=== PATIENT | female | born 1995 | race Caucasian/White ===

== ENCOUNTER 2017-09-13 20:25 | Emergency (ER) | END 2017-09-13 23:50 | disposition home or self-care (01) ==

== ENCOUNTER 2018-01-04 23:05 | Emergency (ER) | END 2018-01-05 07:15 | disposition home or self-care (01) ==

== ENCOUNTER 2018-09-23 01:46 | Emergency (ER) | payer MEDICAID, OTHER ==
[~2018-09-23] VITALS: Ht 162.6 cm; Wt 77.0 kg
[~2018-09-23 01:46] MED LIST: ACET500C5 PO; CIPR500T4 PO; HYDR-4011 PO; IBUP-1542 PO; NAPR-985 PO; [UNRECOGNIZED DRUG - CODE]
[2018-09-23 02:01] VITALS: Ht 162.6 cm; Wt 77.0 kg
--- NOTE | 2018-09-23 03:28 | ERD ---
ER Documentation Chief Complaint Chief Complaint R flank pain today w/ frequency/urgency/dysuria. no n/v/d HPI 23-year-old female complaining of dysuria times 1 day. Patient states that she initially thought her symptoms are due to yeast infection. She took fluconazole, as well as use antifungal cream. However, throughout the day her symptoms has seem to be worsening. She complaining of urinary frequency, urgency, and small amounts. He also developed a right flank pain. Denies fever or chills. Denies nausea, vomiting, or diarrhea. ROS All systems reviewed and are negative except as per history of present illness. Medications Home Meds Active Scripts Nitrofurantoin Monohyd Macrocr* (Macrobid*) 100 Mg Capsr, 100 MG PO BID for 7 Days, CAP Prov:SIMON DWYER [employer]ILLANCE [employer]ITOR 09/23/18 Acetaminophen* (Tylophen*) 500 Mg Capsule, 1 CAP PO Q6H PRN for PAIN AND OR ELEVATED TEMP, #20 CAP Prov:BRETT BRO-C 01/05/18 Ibuprofen* (Motrin*) 600 Mg Tab, 600 MG PO Q6, #30 TAB Prov:BRETT BRO-C 01/05/18 Ciprofloxacin Hcl* (Ciprofloxacin Hcl*) 500 Mg Tablet, 500 MG PO BID for 7 Days, TAB Prov:BRETT BRO-C 01/05/18 Hydrocodone/Acetaminophen ([place] 5-325 Tablet) 1 Each Tablet, 1 EACH PO Q4, #7 TAB Prov:FRIEDA,VIRGILIO 09/13/17 Naproxen* (Naprosyn*) 500 Mg Tablet, 500 MG PO BID for 10 Days, #20 TAB Prov:FRIEDA,VIRGILIO 09/13/17 Reported Medications Diphenhydramine Hcl (Benadrilina) 25 Mg Capsule 03/22/11 Allergies Allergies: Coded Allergies: No Known Drug Allergies (Verified Allergy, Mild, 01/05/18) PMhx/Soc History of Surgery: No Anesthesia Reaction: No Hx Neurological Disorder: No Hx Respiratory Disorders: No Hx Cardiac Disorders: No Hx Psychiatric Problems: No Hx Miscellaneous Medical Probl: No Hx Alcohol Use: Yes Hx Substance Use: No Hx Tobacco Use: No Physical Exam Vitals Vital Signs Date Temp Pulse Resp B/P (MAP) Pulse Ox O2 O2 Flow FiO2 Time Delivery Rate 09/23/18 97.3 99 16 136/84 99 02:01 (101) Physical Exam General: Well-developed, well-nourished, conscious and coherent, in no distress Skin: Warm and dry without rash, good texture and turgor Head: Normocephalic without evidence of trauma Chest: Normal AP diameter. Good expansion without retractions. Nontender. Lungs are clear to auscultate bilaterally with good tidal volume Heart: Regular rate and rhythm. No murmur, rub, or gallops heard Abdomen: Soft and nontender without masses, guarding, or rebound. Bowel sounds are active. No hepatosplenomegaly Back: Without spinal tenderness. Mild right CVA tenderness Extremities: Full range of motion. Good strength bilaterally. No erythema, ecchymosis, or edema. Peripheral pulses are intact. Sensation intact Neuro: Alert and oriented 4, GCS 15. Results 24 hrs Laboratory Tests Test 09/23/18 03:30 09/23/18 03:31 Bedside Urine pH (LAB) 7.0 Bedside Urine Protein (LAB) 2+ Bedside Urine Glucose (UA) Negative Bedside Urine Ketones (LAB) Negative Bedside Urine Blood 2+ Bedside Urine Nitrite (LAB) Negative Bedside Urine Leukocyte Esterase (L 3+ POC Beta HCG, Qualitative NEGATIVE Procedures/MDM Well-appearing 23-year-old female presents the ED with dysuria times 1 day. UA showed 3+ leukocyte, 2+ blood, negative nitrite. These are consistent with urinary tract infection. Although people does have a mild right CVA tenderness, she is afebrile, I doubt pyelonephritis. I doubt sepsis. Patient appears well, stable for discharge and outpatient management. Medical decision making shared with patient and family. Education provided to patient and family. Patient and family expressed understanding of the plan. Medications on discharge: Macrobid. Follow-up: Primary care provider in 2-3 days or return to ED if worse. Disclaimer: Inadvertent spelling and grammatical errors are likely due to EHR/dictation software use and do not reflect on the overall quality of patient care. Also, please note that the electronic time recorded on this note does not necessarily reflect the actual time of the patient encounter. Departure Diagnosis: Primary Impression: Dysuria Condition: Stable SIMON DWYER NP Sep 23, 2018 03:28
[2018-09-23] MEDS ORDERED: NITR-58 PO (03:41)
[2018-09-23 04:07] VITALS: BP 123/74; PULSE 78; RESP 15
== END 2018-09-23 04:07 | disposition home or self-care (01) ==
LOC: FTE 01:46
DX: R30.0 Dysuria (principal); R40.2412 Glasgow coma scale score 13-15, at arrival to emergency department
CPT/HCPCS: 81003; 81025; Z7502; 99283